=== PATIENT | male | born 1950 | race Caucasian/White ===

== ENCOUNTER 2019-08-05 10:51 | Day surgery (SDC) | payer OTHER ==
[2019-08-04 08:33] VITALS: BMI 28.3
[~2019-08-05 10:51] MED LIST: ACETAMINOPHEN 325 MG TABLET (FP) PO PRN; CYCLOPENTOLATE HCL 1% OPHTH SOLN 2 ML BOTTLE OP SCH; KETOROLAC TROMETHAMINE 0.5% EYE DROP 1 DROP DROPS OP SCH; OFLOXACIN 0.3% OPHTHALMIC SOLUTION 5 ML BOTTLE OP SCH; PHENYLEPHRINE 2.5% OPHTH SOLN 15 ML BOTTLE OP SCH; TROPICAMIDE 1% OPHTH SOLN 15 ML BOTTLE OP SCH
[2019-08-05] MEDS ORDERED: CYCLOPENTOLATE HCL 1% OPHTH SOLN 2 ML BOTTLE ONE (11:10)
[2019-08-05] MEDS ORDERED: OFLOXACIN 0.3% OPHTHALMIC SOLUTION 5 ML BOTTLE ONE (11:10)
[2019-08-05] MEDS ORDERED: PHENYLEPHRINE 2.5% OPHTH SOLN 15 ML BOTTLE ONE (11:11)
[2019-08-05] MEDS ORDERED: TROPICAMIDE 1% OPHTH SOLN 15 ML BOTTLE ONE (11:11)
[2019-08-05] MEDS ORDERED: KETOROLAC TROMETHAMINE 0.5% EYE DROP 1 DROP DROPS ONE (11:11)
[2019-08-05] MEDS ORDERED: TETRACAINE 0.5% OPHTH SOLN 2 ML BOTTLE TP ONE (12:08)
[2019-08-05] MEDS ORDERED: MIDAZOLAM HCL 2 MG/2 ML SINGLE DOSE VIAL ONE (12:13)
[2019-08-05] MEDS ORDERED: LIDOCAINE HCL 1% PRESERVATIVE FREE - 30ML VIAL IO ONE (12:22)
[2019-08-05] MEDS ORDERED: EPINEPHrine/PF 1 MG/1 ML (1:1,000) AMPULE SQ ONE (12:26)
[2019-08-05] MEDS ORDERED: TRYPAN BLUE 0.5 ML DISP.SYRIN IO ONE (12:26)
[2019-08-05] MEDS ORDERED: CHONDROITIN SU A/HYALUR SOD 1 KIT IO ONE (12:26)
[2019-08-05] MEDS ORDERED: CHONDROITIN SU A/HYALUR SOD 1 KIT ONE (12:58)
[2019-08-05 13:53] VITALS: BP 129/61; PULSE 79; TEMP 98
--- NOTE | 2019-08-06 07:34 | OP ---
DATE OF OPERATION: DATE OF DICTATION: 08/05/2019 PREOPERATIVE DIAGNOSIS: Cataract, left eye. POSTOPERATIVE DIAGNOSIS: Cataract, left eye. PROCEDURE: Phacoemulsification of left cataract with capsular staining with Trypan blue and posterior chamber intraocular lens implantation, the lens used [id number], 21.5-diopter power, serial number [id number]. SURGEON: Raymond Zepeda MD ANESTHESIA: Topical, MAC. COMPLICATIONS: None. PROCEDURE: The patient was brought to the operating room and correctly identified along with the operative site as well as correct intraocular lens carrillo. He was then prepped and draped in the usual sterile fashion including 5% Betadine solution in the conjunctival sac and an eyelid drape. An eyelid speculum was then placed into the left eye. The patient was asked to fixate on the microscope light; however, had a difficult time doing this. Decision was then made to use Trypan blue. A paracentesis port was created and 0.5 mL of preservative-free lidocaine 1% was given intracamerally. An air bubble was then placed in the eye and the capsule stained with Trypan blue. The Trypan blue was irrigated from the eye with the remaining 0.5 mL of 1% preservative-free lidocaine. Viscoelastic was injected to inflate the anterior chamber and a temporal clear corneal wound was created. A continuous circular capsulorrhexis was performed. However, the patient was noted to move his eyes around and flinching with any maneuvers. Patient was then given intravenous fentanyl and the case proceeded. The nucleus was then hydrodissected with BSS and removed with phacoemulsification. The remaining cortical material was irrigated and aspirated from the eye. Viscoelastic was injected to inflate the capsular bag. The lens was injected into the capsular bag. Viscoelastic was irrigated and aspirated from the eye. Again, the patient was noted to note follow instructions during the surgery. At the end of the procedure all wounds were stromal hydrated. The temporal clear corneal wound seemed watertight; however, with the patient valsalvaing there seemed to be some mild leakage. A single 10-0 nylon suture was placed in the temporal clear corneal wound and the wound rechecked again. This time the anterior chamber was noted to be stable without any leakage at all with external pressure with Weck-Cinthia rodgers. Topical Vancomycin was given, the eye patched and shielded and the patient discharged from the operating room in stable condition. RAYMOND ZEPEDA M.D. [id number]
== END 2019-08-05 14:05 | disposition home or self-care (01) ==
LOC: JASU-SURG 10:51
PROVIDERS: ATTEND Ophthalmology
PROC: 08RK3JZ Replacement of Left Lens with Synthetic Substitute, Percutaneous Approach (ICD-10-PCS; principal; 2019-08-05 12:00)
DX: H26.9 Unspecified cataract (principal)